=== PATIENT | male | born 1955 | race Caucasian/White ===

== ENCOUNTER 2021-01-04 05:49 | Observation (INO) | payer MEDICARE, OTHER ==
[~2021-01-04] VITALS: Ht 182.9 cm; Wt 124.7 kg
[~2021-01-04 05:49] MED LIST: ALLOPURINOL300 MG PO; FLOMAX0.4 MG PO; LISINOPRIL10 MG PO; PRAVASTATIN SOD20 MG PO
[2021-01-04] MEDS ORDERED: CELECOXIB 200 MG CAP ONE (06:07)
[2021-01-04] MEDS ORDERED: DEXAMETHASONE SOD PHOS 10 MG/1 ML VIAL ONE (06:07)
[2021-01-04] MEDS ORDERED: GABAPENTIN 300 MG CAP ONE (06:08)
[2021-01-04] MEDS ORDERED: SODIUM CHLORIDE 0.9% 500ML 500 ML ONE (06:20)
[2021-01-04] MEDS ORDERED: Vancomycin IV 1,000 MG ONE (06:20)
[2021-01-04] MEDS ORDERED: TRANEXAMIC ACID 1,000 MG/10 ML ML ONE (06:20)
[2021-01-04] MEDS ORDERED: ROPIVACAINE 246.25 MG, EPINEPHRINE HCL 1:1000 1ML 0.5 MG, CLONIDINE HCL 0.08 MG, KETORO... INJ ONE ×5 (08:00)
[2021-01-04] MEDS ORDERED: DOCUSATE SODIUM 100 MG CAP PO PRN (08:30)
[2021-01-04] MEDS ORDERED: ACETAMINOPHEN 650 MG SUPP PR PRN (08:30)
[2021-01-04] MEDS ORDERED: DIPHENHYDRAMINE HCL INJ 50 MG/ML VIAL IV PRN (08:30)
[2021-01-04] MEDS ORDERED: HYDROCODONE/APAP 5MG-325MG TAB PO PRN (08:30)
[2021-01-04] MEDS ORDERED: ZOLPIDEM TARTRATE 5 MG TAB PO PRN (08:30)
[2021-01-04] MEDS ORDERED: ONDANSETRON HCL INJ 2MG/ML 2ML 2 MG/ML VIAL IV PRN (08:30)
[2021-01-04] MEDS ORDERED: SODIUM CHLORIDE 0.9% 1000ML 1,000 ML IV SCH (08:30)
[2021-01-04] MEDS ORDERED: KETOROLAC TROMETHAMINE 30 MG/ML VIAL IV PRN (08:30)
[2021-01-04] MEDS: ASPIRIN 325 MG TAB PO SCH ×2 (09:00→16:27)
[2021-01-04] MEDS ORDERED: FENTANYL CITRATE/PF 100MCG/2 ML INJ ONE ×2 (09:03→13:05)
[2021-01-04 09:47] VITALS: BP 109/60
[2021-01-04 09:48] VITALS: BP 109/60
[2021-01-04 09:51] VITALS: BP 129/71
[2021-01-04 09:52] VITALS: BP 109/60
[2021-01-04] MEDS: HYDROCODONE/APAP 7.5MG-325MG 1 EA TAB PO PRN ×2 (12:45→18:10)
[2021-01-04] MEDS ORDERED: LIDOCAINE 2% /EPINEPHRINE 20 ML SDV INJ ONE (12:55)
[2021-01-04] MEDS ORDERED: ROPIVACAINE 0.5% 5 MG/ML 30 ML SDV ONE (12:55)
[2021-01-04] MEDS ORDERED: PROPOFOL IV EMULSION 10 MG/ML 20 ML VIAL ONE (12:59)
[2021-01-04] MEDS ORDERED: METOCLOPRAMIDE HCL 10 MG/2ML VIAL ONE (12:59)
[2021-01-04] MEDS ORDERED: LIDOCAINE HCL 2% LOCAL INJ 5 ML SDV VIAL INJ ONE (12:59)
[2021-01-04] MEDS ORDERED: ONDANSETRON HCL INJ 2MG/ML 2ML 2 MG/ML VIAL ONE (12:59)
[2021-01-04] MEDS ORDERED: LIDOCAINE HCL 2% JELLY 5 ML TUBE ONE (12:59)
[2021-01-04] MEDS ORDERED: SEVOFLURANE INHAL SOLN 250 ML PEN BTL ONE (12:59)
[2021-01-04] MEDS ORDERED: POVIDONE IODINE 0.05% 0.05 % ML PO ONE (12:59)
[2021-01-04] MEDS ORDERED: MIDAZOLAM HCL 2 MG/2 ML VIAL ONE (13:05)
[2021-01-04] MEDS ORDERED: Cefazolin 1 GM in SODIUM CHLORIDE 0.9% 50ML 50 ML IV SCH (15:00)
[2021-01-04 15:55] VITALS: BP 119/65
[2021-01-04] MEDS ORDERED: CELECOXIB 200 MG CAP PO SCH (17:00)
[2021-01-05] MEDS ORDERED: ACETAMINOPHEN 1000 MG/100 ML IV PRN (08:30)
== END 2021-01-04 18:04 | disposition home health service (06) ==
LOC: OR 05:49 → PACU V 09:21 → MED/SURG 09:31
PROVIDERS: ADMIT Specialist; ATTEND Specialist
DX: M17.31 Unilateral post-traumatic osteoarthritis, right knee (principal); M10.9 Gout, unspecified; I10 Essential (primary) hypertension; M23.51 Chronic instability of knee, right knee; Z86.19 Personal history of other infectious and parasitic diseases; E78.5 Hyperlipidemia, unspecified; N40.0 Benign prostatic hyperplasia without lower urinary tract symptoms; Z20.822 Contact with and (suspected) exposure to COVID-19; Z01.810 Encounter for preprocedural cardiovascular examination; Z01.812 Encounter for preprocedural laboratory examination
CPT/HCPCS: 20680; 27447; 71046; 73560; 86850; 86900; 86920; 93005; 97110; 97116; 97161; 97530; C1713 ×2; C1776 ×3; G0378; J0171; J0690; J1100; J1885; J2001 ×3; J2250; J2405; J2704; J2765; J2795; J3010; J3370; J7030; J7040; U0002